=== PATIENT | male | born 1950 | race Caucasian/White ===

== ENCOUNTER → 2018-05-25 | Outpatient (CLI) | payer MEDICARE, OTHER ==
[~2018-05-25] MED LIST: GLUC15006 PO; MAGN100T6 PO; MULT-516 PO
[2018-05-25 11:14] LABS: MICROSCOPIC NOT IND
== END | disposition home or self-care (01) ==
LOC: STAR 10:11
PROVIDERS: ATTEND Urology
DX: Z01.818 Encounter for other preprocedural examination (principal); N20.9 Urinary calculus, unspecified
CPT/HCPCS: 81003; 87086; 93005

== ENCOUNTER 2018-06-08 11:34 | Day surgery (SDC) | payer MEDICARE, OTHER ==
[~2018-06-08] VITALS: Ht 172.7 cm; Wt 74.8 kg
[2018-06-08 11:54] VITALS: BP 131/72
[2018-06-08] MEDS ORDERED: LACTATED RINGERS 1,000 ML IV SCH (11:58)
[2018-06-08] MEDS ORDERED: LIDOCAINE-MPF 1%, 2ML INFIL ONE (12:00)
[2018-06-08] MEDS ORDERED: LIDOCAINE-MPF 1%, 2ML ONE (12:02)
[2018-06-08] MEDS ORDERED: PROPOFOL 10 MG/ML, 20ML ONE (13:32)
[2018-06-08] MEDS ORDERED: SUCCINYLCHOLINE 20 MG/ML, 10ML ONE (13:32)
[2018-06-08] MEDS ORDERED: ROCURONIUM 10 MG/ML,10ML ONE (13:32)
[2018-06-08] MEDS ORDERED: MIDAZOLAM 1 MG/ML, 2ML ONE (13:37)
[2018-06-08] MEDS ORDERED: OXYcodone 5 MG/5 ML ORAL.SOL UDC PO PRN (14:00)
[2018-06-08] MEDS ORDERED: PROMETHAZINE 25 MG/ML, 1ML IV PRN (14:00)
[2018-06-08] MEDS ORDERED: LABETALOL 5MG/ML, 20ML IV PRN (14:00)
[2018-06-08] MEDS ORDERED: HYDROmorphone 1 MG/ML, 1ML IV PRN (14:00)
[2018-06-08] MEDS ORDERED: FENTANYL PF 100 MCG/2ML IV PRN (14:00)
[2018-06-08] MEDS ORDERED: METOCLOPRAMIDE 5 MG/ML, 2ML IV PRN (14:00)
[2018-06-08] MEDS ORDERED: KETOROLAC 30 MG/1 ML IV PRN (14:00)
[2018-06-08] MEDS ORDERED: ONDANSETRON 2MG/ML, 2ML IVPush PRN (14:00)
[2018-06-08] MEDS ORDERED: MEPERIDINE/PF 25MG/0.5ML IVPush PRN (14:00)
[2018-06-08] MEDS ORDERED: ALBUTEROL SULFATE 2.5 MG/3 ML NPPB PRN (14:00)
[2018-06-08] MEDS ORDERED: hydrALAzine 20 MG/ML, 1ML IV PRN (14:00)
[2018-06-08] MEDS ORDERED: FUROSEMIDE 20 MG/2 ML ONE (14:59)
== END 2018-06-08 17:25 | disposition home or self-care (01) ==
LOC: OUT 11:34
PROVIDERS: ATTEND Urology
DX: N20.9 Urinary calculus, unspecified (principal); Z87.891 Personal history of nicotine dependence; Z79.899 Other long term (current) drug therapy; Z98.890 Other specified postprocedural states
CPT/HCPCS: 50590; C1758; C1769; J0330; J1940; J2250; J2704; J3490; J7120